=== PATIENT | female | born 1995 | race Caucasian/White ===

== ENCOUNTER 2018-05-02 19:03 | Emergency (ER) | payer BC ==
[~2018-05-02 19:03] MED LIST: ALB18R INH; CETI10CA8 PO; CIPR-344 PO; ESZO1TAB19 PO; GABA-1 PO; HYDR-4228 PO; LAMO25TA64 PO; LOR5/325 PO; NAPR375T44 PO; NORE-7 PO; ONDA4TAB PO; ONDA4TAB97 PO; PER PO; PROM-110 PO; TRAZ100T31 PO; VENL75CA58 PO; ZIPR40CA14 PO; [UNRECOGNIZED DRUG - CODE] PO
--- NOTE | 2018-05-02 19:13 | ER Report ---
History and Physical Time Seen By MD: 19:13 HPI/ROS CHIEF COMPLAINT: Right-sided abdominal pain, right flank pain HISTORY OF PRESENT ILLNESS: Patient is a 22-year-old female here with complaints of right-sided abdominal pain, right-sided flank pain with CVA tenderness which is been present for the last couple weeks, acutely worsening over the past day or 2. Patient does have history significant for polycystic ovarian syndrome, constipation however she reports having loose bowel movements which have been green in coloration with intermittent red specks in the setting of internal hemorrhoids. Patient reports that she's had decreased urine output since but denies hematuria, melena, vomiting, fevers or chills, chest pain or shortness of breath. She has been tolerating oral intake however reports decreased appetite. Patient also reports having intermittent migraines, but denies taking medications aside from the licorice supplement. REVIEW OF SYSTEMS: Constitutional: No fever, no chills. Eyes: No discharge. ENT: No sore throat. Cardiovascular: No chest pain, no palpitations. Respiratory: No cough, no shortness of breath. Gastrointestinal: + right sided abdominal pain, no vomiting, + intermittent nausea, + diarrhea Genitourinary: No hematuria. Musculoskeletal: + right CVA tenderness. Skin: No rashes. Neurological: No headache. Allergies: Coded Allergies: budesonide (Unverified Allergy, Intermediate, SWELLING, 05/02/18) Penicillins (Verified Allergy, Unknown, 05/02/18) Home Meds Active Scripts Albuterol Sulfate (VENTOLIN HFA) 18 Gm Inh, 1-2 PUFF INH 3-4XD PRN for WHEEZING, #1 INH 0 Refills Prov:SUSAN WORKMAN MD 07/25/16 Discontinued Scripts Ondansetron Hcl (ZOFRAN) 4 Mg Tablet, 4 MG PO Q8H for Nausea, #15 TAB 0 Refills Prov:MARY ALICE DA SILVA MD 01/18/17 Naproxen (NAPROXEN) 375 Mg Tablet, 375 MG PO TID for PAIN, #15 TAB Prov:MARY ALICE DA SILVA MD 01/18/17 Hx Smoking: No Smoking Status: Never Smoker Hx Substance Use Disorder: No Constitutional Vital Sign - Last 24 Hours 05/02/18 19:12 Temp 98.3 Pulse 76 Resp 18 B/P (MAP) 124/90 Pulse Ox 95 O2 Delivery Room Air Physical Exam General Appearance: The patient is alert, has no immediate need for airway protection and no signs of toxicity. No acute distress Eyes: Pupils equal and round no pallor or injection. ENT, Mouth: Mucous membranes are moist. Respiratory: There are no retractions, lungs are clear to auscultation. Cardiovascular: Regular rate and rhythm. Gastrointestinal: Abdomen is soft + tender in the right abdomen, no masses, bowel sounds normal. Neurological: No focal deficits Skin: Warm and dry, no rashes. Musculoskeletal: Neck is supple non tender, + right CVA tenderness. Extremities are nontender, nonswollen and have full range of motion. DIFFERENTIAL DIAGNOSIS: After history and physical exam differential diagnosis was considered for abdominal pain including but not limited to appendicitis, cholecystitis, gastritis and urinary tract infection. Medical Decision Making Data Points Result Diagram: 05/02/18193505/02/181935 Laboratory Hematology Test 05/02/18 19:36 05/02/18 20:38 Red Blood Count 5.26 M/uL (4.17-5.56) Mean Corpuscular Volume 85.3 fL (80.0-96.0) Mean Corpuscular Hemoglobin 30.3 pg (26.0-33.0) Mean Corpuscular Hemoglobin Concent 35.5 g/dL (32.0-36.0) Red Cell Distribution Width 13.1 % (11.5-14.5) Mean Platelet Volume 8.5 fL (7.2-11.1) Neutrophils (%) (Auto) 47.6 % (39.4-72.5) Lymphocytes (%) (Auto) 44.3 % (17.6-49.6) Monocytes (%) (Auto) 6.7 % (4.1-12.4) Eosinophils (%) (Auto) 0.9 % (0.4-6.7) Basophils (%) (Auto) 0.5 % (0.3-1.4) Nucleated RBC Relative Count (auto) 0.0 /100WBC Neutrophils # (Auto) 4.0 K/uL (2.0-7.4) Lymphocytes # (Auto) 3.7 K/uL (1.3-3.6) Monocytes # (Auto) 0.6 K/uL (0.3-1.0) Eosinophils # (Auto) 0.1 K/uL (0.0-0.5) Basophils # (Auto) 0.0 K/uL (0.0-0.1) Nucleated RBC Absolute Count (auto) 0.00 K/uL Sodium Level 140 mmol/L (137-145) Potassium Level 3.4 mmol/L (3.5-5.0) Chloride Level 105 mmol/L (98-107) Carbon Dioxide Level 22 mmol/L (22-31) Blood Urea Nitrogen 9 mg/dl (7-18) Creatinine 0.70 mg/dl (0.52-1.04) Glomerular Filtration Rate Calc > 60.0 Random Glucose 80 mg/dl (75-110) Calcium Level 9.5 mg/dl (8.4-10.2) Total Bilirubin 0.5 mg/dl (0.2-1.3) Aspartate Amino Transf (AST/SGOT) 24 U/L (0-35) Alanine Aminotransferase (ALT/SGPT) 38 U/L (0-56) Alkaline Phosphatase 43 U/L (0-126) Total Protein 7.6 g/dl (6.3-8.2) Albumin 4.5 g/dl (3.5-5.0) Lipase 78 U/L (23-300) Human Chorionic Gonadotropin, Qual Negative (NEGATIVE) Urine Color Yellow Urine Clarity Clear Urine pH 5.0 pH (4.8-9.5) Urine Specific [place] 1.009 Urine Protein Negative mg/dL (NEGATIVE) Urine Glucose (UA) Negative mg/dL (NEGATIVE) Urine Ketones Trace mg/dL (NEGATIVE) Urine Blood Negative (NEGATIVE) Urine Nitrite Negative (NEGATIVE) Urine Bilirubin Negative (NEGATIVE) Urine Urobilinogen Negative mg/dL (0.2-1.9) Urine Leukocyte Esterase Negative (NEGATIVE) Urine RBC <1 /HPF (0-2/HPF) Urine WBC 1 /HPF (0-5/HPF) Urine Squamous Epithelial Cells Few /LPF (</=FEW) Urine Bacteria Few /HPF (NONE-FEW) Urine Mucus Few /HPF (NONE-FEW) Chemistry Test 05/02/18 19:36 05/02/18 20:38 White Blood Count 8.4 k/uL (4.5-11.0) Red Blood Count 5.26 M/uL (4.17-5.56) Hemoglobin 15.9 g/dL (12.0-16.0) Hematocrit 44.9 % (34.0-47.0) Mean Corpuscular Volume 85.3 fL (80.0-96.0) Mean Corpuscular Hemoglobin 30.3 pg (26.0-33.0) Mean Corpuscular Hemoglobin Concent 35.5 g/dL (32.0-36.0) Red Cell Distribution Width 13.1 % (11.5-14.5) Platelet Count 285 K/uL (150-450) Mean Platelet Volume 8.5 fL (7.2-11.1) Neutrophils (%) (Auto) 47.6 % (39.4-72.5) Lymphocytes (%) (Auto) 44.3 % (17.6-49.6) Monocytes (%) (Auto) 6.7 % (4.1-12.4) Eosinophils (%) (Auto) 0.9 % (0.4-6.7) Basophils (%) (Auto) 0.5 % (0.3-1.4) Nucleated RBC Relative Count (auto) 0.0 /100WBC Neutrophils # (Auto) 4.0 K/uL (2.0-7.4) Lymphocytes # (Auto) 3.7 K/uL (1.3-3.6) Monocytes # (Auto) 0.6 K/uL (0.3-1.0) Eosinophils # (Auto) 0.1 K/uL (0.0-0.5) Basophils # (Auto) 0.0 K/uL (0.0-0.1) Nucleated RBC Absolute Count (auto) 0.00 K/uL Glomerular Filtration Rate Calc > 60.0 Calcium Level 9.5 mg/dl (8.4-10.2) Total Bilirubin 0.5 mg/dl (0.2-1.3) Aspartate Amino Transf (AST/SGOT) 24 U/L (0-35) Alanine Aminotransferase (ALT/SGPT) 38 U/L (0-56) Alkaline Phosphatase 43 U/L (0-126) Total Protein 7.6 g/dl (6.3-8.2) Albumin 4.5 g/dl (3.5-5.0) Lipase 78 U/L (23-300) Human Chorionic Gonadotropin, Qual Negative (NEGATIVE) Urine Color Yellow Urine Clarity Clear Urine pH 5.0 pH (4.8-9.5) Urine Specific Tom[place] 1.009 Urine Protein Negative mg/dL (NEGATIVE) Urine Glucose (UA) Negative mg/dL (NEGATIVE) Urine Ketones Trace mg/dL (NEGATIVE) Urine Blood Negative (NEGATIVE) Urine Nitrite Negative (NEGATIVE) Urine Bilirubin Negative (NEGATIVE) Urine Urobilinogen Negative mg/dL (0.2-1.9) Urine Leukocyte Esterase Negative (NEGATIVE) Urine RBC <1 /HPF (0-2/HPF) Urine WBC 1 /HPF (0-5/HPF) Urine Squamous Epithelial Cells Few /LPF (</=FEW) Urine Bacteria Few /HPF (NONE-FEW) Urine Mucus Few /HPF (NONE-FEW) Urinalysis Test 05/02/18 20:38 Urine Color Yellow Urine Clarity Clear Urine pH 5.0 pH (4.8-9.5) Urine Specific [place] 1.009 Urine Protein Negative mg/dL (NEGATIVE) Urine Glucose (UA) Negative mg/dL (NEGATIVE) Urine Ketones Trace mg/dL (NEGATIVE) Urine Blood Negative (NEGATIVE) Urine Nitrite Negative (NEGATIVE) Urine Bilirubin Negative (NEGATIVE) Urine Urobilinogen Negative mg/dL (0.2-1.9) Urine Leukocyte Esterase Negative (NEGATIVE) Urine RBC <1 /HPF (0-2/HPF) Urine WBC 1 /HPF (0-5/HPF) Urine Squamous Epithelial Cells Few /LPF (</=FEW) Urine Bacteria Few /HPF (NONE-FEW) Urine Mucus Few /HPF (NONE-FEW) EKG/Imaging Imaging CT abdomen and pelvis without contrast Indication: Right abdominal and flank pain. Comparison: 08/11/2014. Technique: Axial CT images are obtained through the abdomen and pelvis. Refor matted coronal and sagittal images were reviewed. IV contrast was not administered. One of the following dose optimization techniques was utilized in the performance of this exam: automated exposure control; adjustment of the mA and/or kV according to the patient's size; or use of an iterative reconstruction technique. Specific details can be referenced in the facility's radiology CT exam operational policy. Findings: Lower lung murphy: Limited views lower lung field are unremarkable. Evaluation of the solid organs of the abdomen is limited without IV contrast. Liver: No focal parenchymal abnormality of the liver. Biliary: Status post cholecystectomy. Biliary system is unremarkable. Pancreas: Normal appearance. Spleen: Normal appearance. Adrenal glands: Unremarkable. Kidneys / retroperitoneum: No evidence of nephrolithiasis or hydronephrosis. No focal abnormality. Bowel / peritoneum / mesenteries: Colon shows no focal normality. Status post appendectomy. Small bowel shows no focal normality or obstruction. Stomach is unremarkable. No free air, free fluid, fluid collections or areas of inflammation. Lymph node assessment: No pathologic adenopathy identified. Pelvic structures: Left ovary does show a simple cyst measuring 2.9 cm. The remaining pelvic structures visualized within normal limits. Vessels: No significant atherosclerotic calcifications seen throughout a nonaneurysmal abdominal aorta and branches. Musculoskeletal / Body wall: No acute or aggressive osseous abnormality. IMPRESSION: 1. No acute intra-abdominal abnormality identified. No indication of urinary stones or hydronephrosis. ED Course/Re-evaluation ED Course Patient is a 22-year-old female here with complaints of right-sided abdominal pain, right flank pain, decreased urine output per patient report. Labs were unremarkable, kidney function was normal, urinalysis showed no signs of infection. CT imaging showed no acute intra-abdominal findings,no hydronephrosis or kidney stones present. There were no signs of obstruction in the bowels or colonic distention. Beta-hCG was negative. Patient remained hemodynamically stable, afebrile throughout course. I updated the patient regarding lab and imaging findings and she voiced understanding. Decision to Disposition Date: May 02, 2018 Decision to Disposition Time: 21:41 Depart Departure Latest Vital Signs Vital Signs Date Time Temp Pulse Resp B/P (MAP) Pulse Ox O2 Delivery O2 Flow Rate FiO2 05/02/18 19:12 98.3 76 18 124/90 95 Room Air Impression: Primary Impression: Abdominal pain Condition: Improved Disposition: HOME OR SELF-CARE Patient Instructions: Abdominal Pain (ED) Additional Instructions: Please drink plenty of water. Please follow-up with her family doctor in the next week for follow-up care. Please return promptly if you develop worsening abdominal pain, nausea, vomiting, fevers or chills. WILVER SANTAMARIA DO May 02, 2018 19:13
[2018-05-02 19:47] LABS: PLATELET COUNT, AUTOMATED 285 K/uL (150-450)
[2018-05-02 21:00] VITALS: BP 117/84
--- NOTE | 2018-05-02 21:34 | RADIOLOGY IMAGING REPORT ---
FACILITY: [facility] PATIENT NAME: Jennifer Pablo : 1995 MR: [id number] V: [id number] EXAM DATE: ORDERING PHYSICIAN: WILVER SANTAMARIA TECHNOLOGIST: Location: [facility] [place] Patient: Jennifer Pablo : 1995 Visit/Account:[id number] Date of Sevice: 05/02/2018 CT abdomen and pelvis without contrast Indication: Right abdominal and flank pain. Comparison: 08/11/2014. Technique: Axial CT images are obtained through the abdomen and pelvis. Reformatted coronal and sagit melanie images were reviewed. IV contrast was not administered. One of the following dose optimization techniques was utilized in the performance of this exam: auto mated exposure control; adjustment of the mA and/or kV according to the patient's size; or use of an iterative reconstruction technique. Specific details can be referenced in the facility's radiology C T exam operational policy. Findings: Lower lung murphy: Limited views lower lung field are unremarkable. Evaluation of the solid organs of the abdomen is limited without IV contrast. Liver: No focal parenchymal abnormality of the liver. Biliary: Status post cholecystectomy. Biliary system is unremarkable. Pancreas: Normal appearance. Spleen: Normal appearance. Adrenal glands: Unremarkable. Kidneys / retroperitoneum: No evidence of nephrolithiasis or hydronephrosis. No focal abnormality. Bowel / peritoneum / mesenteries: Colon shows no focal normality. Status post appendectomy. Small bow el shows no focal normality or obstruction. Stomach is unremarkable. No free air, free fluid, fluid collections or areas of inflammation. Lymph node assessment: No pathologic adenopathy identified. Pelvic structures: Left ovary does show a simple cyst measuring 2.9 cm. The remaining pelvic struc tures visualized within normal limits. Vessels: No significant atherosclerotic calcifications seen throughout a nonaneurysmal abdominal aort a and branches. Musculoskeletal / Body wall: No acute or aggressive osseous abnormality. IMPRESSION: 1. No acute intra-abdominal abnormality identified. No indication of urinary stones or hydronephrosi s. Report Dictated By: Ike Almaguer at 05/02/2018 9:24 PM Report E-Signed By: Ike Almaguer at 05/02/2018 9:31 PM WSN:[id number]
== END 2018-05-02 21:53 | disposition home or self-care (01) ==
LOC: ER 19:22
DX: R10.9 Unspecified abdominal pain (principal)
CPT/HCPCS: 36415; 74176; 81001; 82040; 82247; 82310; 82374; 82435; 82565; 82947; 83690; 84075; 84132; 84155; 84295; 84450; 84460; 84520; 84703; 85025; 99284

== ENCOUNTER → 2018-08-01 | Outpatient (REF) | payer BC ==
[2018-08-01 12:25] LABS: PLATELET COUNT, AUTOMATED 257 K/uL (150-450)
== END ==
PROVIDERS: ATTEND Nurse Practitioner Family
DX: R42 Dizziness and giddiness (principal)
CPT/HCPCS: 82040; 82247; 82310; 82374; 82435; 82565; 82947; 84075; 84132; 84155; 84295; 84450; 84460; 84520; 85025

== ENCOUNTER 2019-02-18 08:56 | Emergency (ER) | payer OTHER, BC ==
--- NOTE | 2019-02-18 08:58 | ER Report ---
History and Physical Time Seen By MD: 08:56 HPI/ROS CHIEF COMPLAINT: Left 4th finger injury HISTORY OF PRESENT ILLNESS: Patient is a 23-year-old female here with complaints of a left 4th finger injury after dropping a safe on her finger while at work. Patient does have a small laceration on the palmar aspect of the finger. Patient denies further injuries at this time. Tetanus will be updated. REVIEW OF SYSTEMS: Constitutional: No fever, no chills. Musculoskeletal: Left 4th finger injury with small laceration Skin: No rashes. Neurological: Neurovascular exam intact Allergies: Coded Allergies: budesonide (Unverified Allergy, Intermediate, SWELLING, 02/18/19) Penicillins (Verified Allergy, Unknown, 02/18/19) Home Meds Active Scripts Tramadol Hcl (TRAMADOL HCL) 50 Mg Tablet, 50 MG PO Q6H PRN for PAIN, #6 TAB 0 Refills Prov:WILVER SANTAMARIA DO 02/18/19 Doxycycline Hyclate (DOXYCYCLINE HYCLATE) 100 Mg Capsule, 100 MG PO BID for 7 Days, #14 CAPSULE Prov:WILVER SANTAMARIA DO 02/18/19 Albuterol Sulfate (VENTOLIN HFA) 18 Gm Inh, 1-2 PUFF INH 3-4XD PRN for WHEEZING, #1 INH 0 Refills Prov:SUSAN WORKMAN MD 07/25/16 Hx Smoking: No Smoking Status: Never Smoker Hx Substance Use Disorder: No Constitutional Vital Sign - Last 24 Hours 02/18/19 09:00 Temp 98.4 Pulse 66 Resp 20 B/P (MAP) 138/98 Pulse Ox 97 Physical Exam General Appearance: The patient is alert, has no immediate need for airway protection and no signs of toxicity. No acute distress Neurological: Neurovascular exam intact Skin: Small laceration on the palmar aspect of the 4th digit Musculoskeletal: Tenderness on palpation of the distal left 4th digit DIFFERENTIAL DIAGNOSIS: After history and physical exam differential diagnosis was considered for fracture, laceration, avulsion Medical Decision Making EKG/Imaging Imaging PATIENT NAME: Jennifer Pablo : 1995 MR: [id number] V: [id number] EXAM DATE: ORDERING PHYSICIAN: WILVER SANTAMARIA TECHNOLOGIST: Location: [facility] - [place] Patient: Jennifer Pablo : 1995 Visit/Account:[id number] Date of Sevradha: 02/18/2019 Exam type: FINGER LEFT 4TH DIGIT History: trauma Comparison: None. Findings: There is a slightly comminuted crush type fracture to the distal tuft of the distal phalanx of the right fourth finger. IMPRESSION: 1. Slightly comminuted crush type fracture distal tuft of the distal phalanx of the right fourth finger ED Course/Re-evaluation ED Course Patient is a 23-year-old female here with a crush injury and laceration to the left 4th distal digit. Laceration was cleaned and irrigated and subsequently closed using Dermabond, hemostasis was achieved. X-ray imaging showed a crush type injury to the distal phalanx, patient was given prescription for doxycycline for prophylaxis and advised to follow-up with her PCP in the next week for reevaluation. Return cautions provided. Patient was given a prescription for tramadol but was advised to take ibuprofen or naproxen as needed for primary pain control. Patient was neurovascularly intact prior to discharge. Phalanx was placed in a splint for support. Decision to Disposition Date: Feb 18, 2019 Decision to Disposition Time: 10:07 Depart Departure Latest Vital Signs Vital Signs Date Time Temp Pulse Resp B/P (MAP) Pulse Ox O2 Delivery O2 Flow Rate FiO2 02/18/19 09:00 98.4 66 20 138/98 97 Impression: Primary Impression: Finger laceration Additional Impression: Finger fracture, left Condition: Improved Disposition: HOME OR SELF-CARE New Scripts Tramadol Hcl (TRAMADOL HCL) 50 Mg Tablet 50 MG PO Q6H PRN for PAIN, #6 TAB 0 Refills Prov: WILVER SANTAMARIA DO 02/18/19 Doxycycline Hyclate (DOXYCYCLINE HYCLATE) 100 Mg Capsule 100 MG PO BID for 7 Days, #14 CAPSULE Prov: WILVER SANTAMARIA DO 02/18/19 Departure Forms: ER Transition Record, Medications Reconciliation, Off Work/School Form, School or Work Release?: Work Number of days to be released: 1 Patient Portal Information Patient Instructions: Finger Laceration (ED) Additional Instructions: You were diagnosed with a fracture of the finger with an overlying laceration. Please take doxycycline 1 tablet twice daily for 7 days for prophylaxis. Please take ibuprofen or naproxen as needed for primary pain control, you may take tramadol 1 tablet every 8 hours as needed for breakthrough pain control. Please keep the splint in place to allow for adequate healing. Please return promptly if you develop rash, increasing swelling, difficulty bending the finger, fevers. Please follow-up with your family doctor within the next week for repeat evaluation and care. Problem Qualifiers WILVER SANTAMARIA DO Feb 18, 2019 08:58
[2019-02-18] MEDS ORDERED: DIPHTH/TETANUS/ACEL. PERTUSSIS IM ONLY ONE (09:10)
[2019-02-18] MEDS ORDERED: IBUPROFEN 800 MG TAB PO ONE (09:10)
--- NOTE | 2019-02-18 09:45 | RADIOLOGY IMAGING REPORT ---
FACILITY: [facility] PATIENT NAME: Jennifer Pablo : 1995 MR: [id number] V: [id number] EXAM DATE: ORDERING PHYSICIAN: WILVER SANTAMARIA TECHNOLOGIST: Location: [facility] - [place] Patient: Jennifer Pablo : 1995 Visit/Account:[id number] Date of Sevice: 02/18/2019 Exam type: FINGER LEFT 4TH DIGIT History: trauma Comparison: None. Findings: There is a slightly comminuted crush type fracture to the distal tuft of the distal phalanx of the ri ght fourth finger. IMPRESSION: 1. Slightly comminuted crush type fracture distal tuft of the distal phalanx of the right fourth fin cristiana Report Dictated By: Jessi Briggs MD at 02/18/2019 9:37 AM Report E-Signed By: Jessi Briggs MD at 02/18/2019 9:39 AM WSN:[email or web address]
[2019-02-18 10:00] VITALS: BP 131/105
[2019-02-18] MEDS ORDERED: TRAM-420 PO (10:10)
[2019-02-18] MEDS ORDERED: DOXY-181 PO (10:10)
== END 2019-02-18 10:16 | disposition home or self-care (01) ==
LOC: ER 09:01
DX: S62.635B Displaced fracture of distal phalanx of left ring finger, initial encounter for open fracture (principal)
CPT/HCPCS: 90471; 90715; 99283

== ENCOUNTER → 2019-02-26 | Outpatient (CLI) | payer BC ==
[~2019-02-26] MED LIST changes: +DOXY-181 PO; +TRAM-420 PO
--- NOTE | 2019-02-26 17:22 | RADIOLOGY IMAGING REPORT ---
FACILITY: [facility] PATIENT NAME: Jennifer Pablo : 1995 MR: [id number] V: [id number] EXAM DATE: ORDERING PHYSICIAN: BRISA DIAS TECHNOLOGIST: Location: [facility] Patient: Jennifer Pablo : 1995 Visit/Account:[id number] Date of Sevice: 02/26/2019 3 Views left fourth finger INDICATION: Finger caught in door COMPARISON: None Available FINDINGS: There is a comminuted mildly displaced fracture of the distal tuft of the left index finger . The remainder of the finger is intact. IMPRESSION: Comminuted mildly displaced fracture of the distal tuft of the index finger Report Dictated By: Brady Montiel at 02/26/2019 5:15 PM Report E-Signed By: Brady Montiel at 02/26/2019 5:16 PM WSN:[id number]
== END ==
LOC: RAD 16:38
PROVIDERS: ATTEND Family Medicine
DX: S62.665A Nondisplaced fracture of distal phalanx of left ring finger, initial encounter for closed fracture (principal)

== ENCOUNTER → 2019-03-07 | Outpatient (CLI) | payer BC, OTHER ==
--- NOTE | 2019-03-07 19:18 | RADIOLOGY IMAGING REPORT ---
FACILITY: [facility] PATIENT NAME: Jennifer Pablo : 1995 MR: [id number] V: [id number] EXAM DATE: ORDERING PHYSICIAN: BRISA DIAS TECHNOLOGIST: Location: [facility] - [place] Patient: Jennifer Pablo : 1995 Visit/Account:[id number] Date of Sevice: 03/07/2019 3 Views fourth finger INDICATION: Smashed finger 2 weeks ago COMPARISON: None Available FINDINGS: Comminuted fracture of the fourth distal phalangeal tuft with minimal displacement. Mild a djacent soft tissue swelling. IMPRESSION: Comminuted fracture of the fourth distal phalangeal tuft placement. Report Dictated By: Les Talley MD at 03/07/2019 7:10 PM Report E-Signed By: Les Talley MD at 03/07/2019 7:11 PM WSN:[id number]
== END ==
LOC: RAD 16:00
PROVIDERS: ATTEND Family Medicine
DX: S62.665A Nondisplaced fracture of distal phalanx of left ring finger, initial encounter for closed fracture (principal)